=== PATIENT | female | born 1980 ===

== ENCOUNTER 2021-08-22 07:00 | Day surgery (SDC) | payer OTHER | END 2021-08-22 11:40 | disposition home or self-care (01) | LOC: CIR.AMB 07:00 | PROVIDERS: ATTEND Surgery | DX: L72.0 Epidermal cyst (principal); Z20.822 Contact with and (suspected) exposure to COVID-19 ==

== ENCOUNTER 2023-04-08 17:24 | Emergency (ER) | payer OTHER ==
[~2023-04-08] VITALS: Ht 165.1 cm; Wt 65.8 kg
== END 2023-04-08 20:36 | disposition home or self-care (01) ==
LOC: ER 17:24
DX: D27.0 Benign neoplasm of right ovary (principal)